=== PATIENT | female | born 1945 | race Two or more races ===

== ENCOUNTER 2018-06-23 11:03 | Inpatient (IN) | payer OTHER ==
[~2018-06-23] VITALS: Ht 160 cm; Wt 70.3 kg
[~2018-06-23 11:03] MED LIST: ENALAPRIL MALE2.5 MG
[2018-06-23] MEDS ORDERED: XANAX2 MG PO (11:26)
[2018-06-25] MEDS ORDERED: XARELTO15 MG PO (09:45)
[2018-06-25] MEDS ORDERED: XARELTO20 MG PO (09:46)
== END 2018-06-25 15:48 | disposition home or self-care (01) | DRG 301 ==
LOC: ER 11:03 → MEDI 22:08
PROC: B54CZZZ Ultrasonography of Left Lower Extremity Veins (ICD-10-PCS; principal; 2018-06-23)
DX: I82.412 Acute embolism and thrombosis of left femoral vein (principal); I10 Essential (primary) hypertension

== ENCOUNTER → 2021-05-17 | Emergency (ER) | payer OTHER ==
[~2021-05-17] VITALS: Ht 160 cm; Wt 72.6 kg
[~2021-05-17] MED LIST changes: +EFFER-K 10 MEQ10 MEQ; +LEVOTHYROXINE25 MCG PO; +XANAX2 MG PO; +XARELTO15 MG PO; +XARELTO20 MG PO
== END | disposition home or self-care (01) ==
LOC: ER 22:03
DX: N39.0 Urinary tract infection, site not specified (principal)